=== PATIENT | female | born 1985 | race Caucasian/White ===

== ENCOUNTER 2020-01-08 22:05 | Emergency (ER) | payer MEDICAID ==
[~2020-01-08] VITALS: Ht 162.6 cm; Wt 87.1 kg
[2020-01-08 22:18] VITALS: BP 104/63
[2020-01-08 22:54] LABS: Basophils # (auto) 0 uL; Eosinophils # (auto) 0.1 uL; Eosinophils % (auto) 0.8 % (0.0-7.0); Monocytes % (auto) 9.6 % (0.0-12.0); Neutrophils # (auto) 3.9 uL
[2020-01-08 22:56] LABS: Basophils % (auto) 0.7 % (0.0-2.0); Hematocrit 37.8 % (36.0-46.0); Hemoglobin 12.5 g/dL (12.2-16.2); Lymphocytes % (auto) 29.9 % (10.0-50.0); Mean Corpuscular Hemoglobin 25.8 pg (28.0-32.0); Mean Corpuscular Volume 78.1 fL (80.0-100.0); Monocytes # (auto) 0.6 uL; Nucleated Red Blood Cells % 0.1 %; Platelet Count (auto) 226 10^3/uL (140-450); Red Blood Cells 4.84 10^6/uL (4.0-5.20); Red Cell Distribution Width 13.8 % (11.8-14.3); White Blood Cell 6.7 10^3/uL (4.4-10.8)
[2020-01-08 22:59] LABS: Urine Bacteria FEW /hpf (None Seen); Urine Blood Negative /uL (Negative); Urine Specific Gravity 1.034 (1.001-1.035); Urine WBC 6 /hpf (0 - 5)
[2020-01-08 23:11] LABS: Partial Thromboplastin Time 27.1 sec (23.64-32.05)
[2020-01-08 23:14] LABS: Albumin 3.3 g/dL (3.4-5.0); Calcium 8.4 mg/dL (8.5-10.1); Potassium 4.2 mmol/L (3.5-5.1)
[2020-01-08 23:17] LABS: BUN/Creatinine Ratio 17.1
[2020-01-08 23:19] LABS: Bilirubin, Total 0.2 mg/dL (0.2-1.0); Total Protein 7.4 g/dL (6.4-8.2)
== END 2020-01-09 00:30 | disposition left against medical advice (07) ==
LOC: ER 22:05
DX: R51 Headache (principal); Z53.21 Procedure and treatment not carried out due to patient leaving prior to being seen by health care provider
CPT/HCPCS: 36415; 80053; 81001; 82150; 83690; 83735; 84702; 85025; 85610; 85730

== ENCOUNTER 2025-08-04 10:49 | Emergency (ER) | payer MEDICAID ==
[~2025-08-04] VITALS: Ht 162.6 cm; Wt 75.9 kg
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
[2025-08-04] MEDS: TETANUS-DIPTH-ACEL PERTUSSIS 0.5ML SYR Tdap IM ONE (12:18)
[2025-08-04] MEDS ORDERED: TETANUS-DIPTH-ACEL PERTUSSIS 0.5ML SYR Tdap IM ONE (12:20)
[2025-08-04 12:24] VITALS: BP 136/86; PULSE 78; RESP 16; TEMP 98.3; O2SAT 97
== END 2025-08-04 12:26 | disposition home or self-care (01) ==
LOC: ER 10:49
DX: R20.2 Paresthesia of skin (principal); F10.90 Alcohol use, unspecified, uncomplicated; Y90.9 Presence of alcohol in blood, level not specified
CPT/HCPCS: 90471; 90715